=== PATIENT | female | born 1945 | race Caucasian/White ===

== ENCOUNTER → 2019-06-01 17:51 | Outpatient (CLI) | payer MEDICARE, OTHER, SELFPAY | PROVIDERS: Family Provider Hospitalist; PCP Hospitalist; Referring Provider Dermatology; Visit Provider Dermatology | DX: E83.59 Other disorders of calcium metabolism (principal); L98.499 Non-pressure chronic ulcer of skin of other sites with unspecified severity | CPT/HCPCS: 87070; 87075; 87077; 87186; 87205 ==